=== PATIENT | female | born 1980 | race Caucasian/White ===

== ENCOUNTER 2019-04-21 22:03 | Emergency (ER) | payer OTHER ==
[~2019-04-21] VITALS: Ht 165.1 cm; Wt 81.8 kg
[~2019-04-21 22:03] MED LIST: ETON68IM SQ
[2019-04-22 01:45] VITALS: BP 114/56
== END 2019-04-22 03:01 | disposition home or self-care (01) ==
LOC: EMS 22:03
DX: S93.401A Sprain of unspecified ligament of right ankle, initial encounter (principal); Z88.8 Allergy status to other drugs, medicaments and biological substances; X50.9XXA Other and unspecified overexertion or strenuous movements or postures, initial encounter; Y93.89 Activity, other specified; Y92.89 Other specified places as the place of occurrence of the external cause; Y99.0 Civilian activity done for income or pay

== ENCOUNTER 2021-01-08 08:42 | Emergency (ER) | payer OTHER ==
[~2021-01-08] VITALS: Ht 165.1 cm; Wt 90.0 kg
[2021-01-08 08:53] VITALS: BP 127/75
[2021-01-08] MEDS ORDERED: NAPROXEN 250 MG TABLET PO ONE (10:45)
[2021-01-08] MEDS ORDERED: LIDOCAINE 5% TRANSDERMAL PATCH TD ONE (10:45)
[2021-01-08] MEDS ORDERED: ACETAMINOPHEN 325 MG TABLET PO ONE (10:45)
== END 2021-01-08 11:18 | disposition home or self-care (01) ==
LOC: EMS 08:42
DX: M54.50 Low back pain, unspecified (principal); Z79.899 Other long term (current) drug therapy
CPT/HCPCS: 99284; Z7502; Z7610

== ENCOUNTER 2021-01-08 13:01 | Emergency (ER) | payer OTHER ==
[~2021-01-08] VITALS: Ht 165.1 cm; Wt 90.1 kg
[2021-01-08] MEDS ORDERED: METHOCARBAMOL 500 MG TABLET PO ONE (13:45)
[2021-01-08 13:55] VITALS: BP 140/77
== END 2021-01-08 13:56 | disposition home or self-care (01) ==
LOC: EMS 13:01
DX: M54.50 Low back pain, unspecified (principal); V43.62XA Car passenger injured in collision with other type car in traffic accident, initial encounter; Y93.89 Activity, other specified; Y92.89 Other specified places as the place of occurrence of the external cause; Y99.8 Other external cause status
CPT/HCPCS: 99283

== ENCOUNTER 2024-06-26 12:01 | Emergency (ER) | payer OTHER ==
[~2024-06-26] VITALS: Ht 165.1 cm; Wt 90.0 kg
[2024-06-26 12:19] LABS: COVID AG,FIA SOURCE NASAL SWAB
[2024-06-26 12:24] VITALS: TEMP 98.1
[2024-06-26 12:40] LABS: INFLUENZA TYPE A NEGATIVE FOR TYPE A (NEGATIVE); INFLUENZA TYPE B NEGATIVE FOR TYPE B (NEGATIVE); SARS-COV2 (COVID) ANTIGEN,FIA Negative (Negative)
[2024-06-26] MEDS ORDERED: AMOX-457 PO (12:47)
[2024-06-26] MEDS ORDERED: ACET-3385 PO (12:47)
[2024-06-26] MEDS ORDERED: IBUP-1492 PO (12:47)
[2024-06-26 12:53] VITALS: BP 159/84; PULSE 87; RESP 17; O2SAT 98
[2024-06-26] MEDS: IBUPROFEN 600 MG TABLET PO ONE (13:11)
[2024-06-26] MEDS: AMOX TR/POT CLAV 875 MG/125 MG TABLET PO ONE (13:11)
== END 2024-06-26 14:04 | disposition home or self-care (01) ==
LOC: EMS 12:01
DX: H66.93 Otitis media, unspecified, bilateral (principal); Z20.822 Contact with and (suspected) exposure to COVID-19
CPT/HCPCS: 87804; 99283